=== PATIENT | female | born 1970 | race Caucasian/White ===

== ENCOUNTER 2022-06-09 13:30 | Emergency (ER) | payer MEDICARE ==
[~2022-06-09 13:30] MED LIST: ALLOPURINOL300 MG PO; ALPRAZOLAM2 MG PO; AMLODIPINE BESY10 MG PO; DULOXETINE HCL60 MG PO; GLIPIZIDE10 MG PO; HUMALOG SQ; HYDROCODON-ACE1 EAC6 PO; OMEGA 3 PO; PERCOCET 10-321 EACH PO; PRAVASTATIN SOD20 MG PO; TOUJEO MAX300 UNIT/1 SQ
[2022-06-09 15:12] LABS: HEMOGLOBIN 13.1 gm/dl (12.3-15.3); RED BLOOD COUNT 4.7 M/UL (4.00-5.10); WHITE BLOOD COUNT 9.2 K/UL (4.5-11.0)
[2022-06-09] MEDS ORDERED: PYRIDIUM200 MG PO (18:16)
[2022-06-09] MEDS ORDERED: CEFUROXIME500 MG PO (18:16)
== END 2022-06-09 19:15 | disposition home or self-care (01) ==
LOC: ER1 13:30
PROVIDERS: Physician Assistant
DX: N39.0 Urinary tract infection, site not specified (principal); I10 Essential (primary) hypertension; E11.43 Type 2 diabetes mellitus with diabetic autonomic (poly)neuropathy; K31.84 Gastroparesis; Z88.0 Allergy status to penicillin; Z87.442 Personal history of urinary calculi; Z88.6 Allergy status to analgesic agent
CPT/HCPCS: 80053; 81001; 83690; 84703; 85025; 87086; 96374; 96375; 99284; J1885; J2405